=== PATIENT | female | born 1965 | race Caucasian/White ===

== ENCOUNTER → 2024-09-20 06:42 | Outpatient (REF) | payer OTHER, SELFPAY | LOC: RAD 06:42 | PROVIDERS: ATTENDING PHYSICIAN Family Medicine | DX: R10.9 Unspecified abdominal pain (principal) | CPT/HCPCS: 74177; Q9967 ==

== ENCOUNTER → 2024-12-20 08:11 | Outpatient (REF) | payer OTHER, SELFPAY | LOC: RAD 08:11 | PROVIDERS: ATTENDING PHYSICIAN Orthopaedic Surgery; FAMILY PHYSICIAN Family Medicine | DX: T14.8XXA Other injury of unspecified body region, initial encounter (principal) | CPT/HCPCS: 77080 ==